=== PATIENT | female | born 1980 | race Caucasian/White ===

== ENCOUNTER 2017-03-17 13:29 | Emergency (ER) | payer OTHER ==
[~2017-03-17] VITALS: Ht 149.9 cm; Wt 89.8 kg
[2017-03-17 13:29] VITALS: BP 164/90
[2017-03-17] MEDS ORDERED: CETI10TA (13:42)
[2017-03-17] MEDS ORDERED: OMEP40CA2 (13:42)
[2017-03-17] MEDS ORDERED: LOSA50TA20 (13:42)
[2017-03-17] MEDS ORDERED: SERT-155 (13:42)
--- NOTE | 2017-03-17 20:25 | ECGEPIP ---
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 Order Number: [id number] Reading MD: Lidia Ho Measurements Intervals Dix Rate: 68 P: 55 OR: 129 QRS: 68 QRSD: 90 T: 21 QT: 405 QTc: 431 Interpretive Statements SINUS RHYTHM NONSPECIFIC T-WAVE ABNORMALITY NO PRIOR FOR COMPARISON Electronically Signed On 03-17-2017 20:24:35 EDT by Lidia Ho
== END 2017-03-17 16:24 | disposition home or self-care (01) ==
LOC: M ED 16:20
DX: T78.40XA Allergy, unspecified, initial encounter (principal); R11.0 Nausea; L29.9 Pruritus, unspecified